=== PATIENT | male | born 1960 | race Caucasian/White ===

== ENCOUNTER 2017-10-15 07:45 | Inpatient (IN) | payer MEDICARE, MEDICAID ==
[2017-10-15 07:56] VITALS: BMI 30.2
[2017-10-15 08:32] LABS: BASO # 0.1 K/uL (0.0-0.2); BASO % 0.7 % (0.0-2.0); EOS # 0.1 K/uL (0.0-0.7); EOS % 0.5 % (0.0-4.0); HEMOGLOBIN 14.4 g/dL (12.0-18.0); LYMPH # 1.4 K/uL (1.0-4.3); LYMPH % 11.8 % (20.0-40.0); MEAN CELL VOLUME 95.8 fL (80.0-94.0); MEAN CORPUSCULAR HEMOGLOBIN 32.3 pg (27.0-31.0); MEAN CORPUSCULAR HGB CONC 33.7 g/dL (33.0-37.0); MEAN PLATELET VOLUME 9.8 fL (7.2-11.7); MONO # 1.4 K/uL (0.0-0.8); MONO % 11.7 % (0.0-10.0); NEUT % 75.3 % (50.0-75.0); RBC 4.44 Mil/uL (4.40-5.90); RED CELL DISTRIBUTION WIDTH 13.9 % (11.5-14.5); WHITE BLOOD COUNT 11.9 K/uL (4.8-10.8)
[2017-10-15 08:44] LABS: ALB/GLOB RATIO 1.4 (1.0-2.1); CALCIUM 9.3 mg/dl (8.6-10.4); GFR NON-AFRICAN AMERICAN > 60
[2017-10-15 08:45] LABS: ACETAMINOPHEN < 10.0 ug/mL (10.0-30.0); ALT/SGPT 19 U/L (21-72); AST/SGOT 27 U/L (17-59); BLOOD UREA NITROGEN 19 mg/dL (9-20); SALICYLATE < 1.0 mg/dL 1
--- NOTE | 2017-10-15 09:10 | C.PDOC ---
History Of Present Illness <Romana Post - Last Filed: 10/15/17 18:25> <Zoey Yee N - Last Filed: 10/15/17 21:52> 56 y/o male with PMH HTN and CVA presents to ED for complaints of trouble sleeping that began 2 weeks ago. 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 HPI and ROS limited secondary to condition of sleepiness. ( Romana Post) History Per: Patient History/Exam Limitations: no limitations Onset/Duration Of Symptoms: Hrs Current Symptoms Are (Timing): Still Present Suicide/Self Injury Attempted (Context): None Associated Symptoms: denies: Suicidal Thoughts, Suicidal Plan Involuntary Hold By: None Recent travel outside of the [place]: No <Romana Post - Last Filed: 10/15/17 18:25> <Zoey Yee N - Last Filed: 10/15/17 21:52> Time Seen by Provider: 10/15/17 07:52 Chief Complaint (Nursing): Psychiatric Evaluation Past Medical History Reviewed: Historical Data, Nursing Documentation, Vital Signs - Medical History PMH: Anxiety, Bipolar Disorder, Diabetes, HTN, Chronic Kidney Disease, TIA (CVA) Family History: States: Unknown Family Hx - Social History Hx Tobacco Use: Yes Hx Alcohol Use: No (Patient denies) Hx Substance Use: Yes (Patient reported he quit > 30 years ago) - Immunization History Hx Tetanus Toxoid Vaccination: No Hx Influenza Vaccination: No Hx Pneumococcal Vaccination: No <Romana Post - Last Filed: 10/15/17 18:25> Vital Signs: Last Vital Signs Temp 99 F 10/15/17 17:23 Pulse 88 10/15/17 20:52 Resp 16 10/15/17 20:52 BP 147/75 10/15/17 20:52 Pulse Ox 100 10/15/17 20:52 - [facility] Procedures EXERCISE TREATMENT OF MUSCULOSK WHOLE USING ASSIST EQUIPMENT (07/02/15) GAIT TRAINING/FUNCTIONAL AMBULATION TREATMENT (07/02/15) HOME MANAGEMENT TREATMENT USING ASSIST EQUIPMENT (07/02/15) INTRODUCTION OF SERUM/TOX/VACCINE INTO MUSCLE, PERC APPROACH (08/08/15) ULTRASONOGRAPHY OF RIGHT AND LEFT HEART, TRANSESOPHAGEAL (08/08/15) Review Of Systems Review Of Systems: ROS cannot be obtained secondary to pt's inabilty to answer questions. (Limited secondary to condition of sleepiness) Constitutional: Positive for: Other (Trouble sleeping) <Romana Post - Last Filed: 10/15/17 18:25> Physical Exam - Physical Exam Appears: Non-toxic, No Acute Distress, Other (Sleepy but arousable ) Skin: Normal Color, Warm, Dry, No Rash Head: Atraumatic, Normacephalic Eye(s): bilateral: Normal Inspection, PERRL, EOMI Nose: Normal Oral Mucosa: Moist Neck: Normal ROM, Supple Chest: Symmetrical, No Tenderness Cardiovascular: Rhythm Regular Respiratory: Normal Breath Sounds, No Decreased Breath Sounds, No Rales, No Rhonchi, No Wheezing Gastrointestinal/Abdominal: Normal Exam, Soft, No Tenderness Extremity: Normal ROM, No Deformity Extremity: Bilateral: Atraumatic, Normal Color And Temperature, Normal ROM Neurological/Psych: Oriented x3, Normal Speech, Other (No focal deficits ) <Romana Post - Last Filed: 10/15/17 18:25> ED Course And Treatment - Laboratory Results Result Diagrams: 10/15/17 08:29 10/15/17 08:29 ECG: Interpreted By Me, Viewed By Me ECG Rhythm: Sinus Rhythm (Normal at 73 bpm ), Nonspecific Changes O2 Sat by Pulse Oximetry: 96 (RA) Pulse Ox Interpretation: Normal Progress Note: Ordered blood work, EKG, and Urinalysis. Crisis Notified. Pt was re-evaluated multiple times. Pt later states he took the "pills" for a "quick ". Vitals WNL. PT requesting to be discharged. More alert but occassionally drowsy. Pt was seen and evaluted by crisis, who instruct[place] [facility] [place]. PT ate meal, had family at bedside, no acute distress. Case endorsed to Dr Yee, pending re-evaluation and disposition. <Romana Post - Last Filed: 10/15/17 18:25> - Laboratory Results Result Diagrams: 10/15/17 08:29 10/15/17 08:29 - Other Rad Chest X-Ray: Viewed By Me, Read By Radiologist Interpretation: Findings: Mild diffuse increased interstitial lung markings. Mild right hilar prominence. Question mild patchy increased markings at the left lung base. Clinical correlation. Heart size within normal limits. Degenerative changes in the spine. Impression: Mild diffuse increased interstitial lung markings. Mild right hilar prominence. Question mild patchy increased markings at the left lung base. Clinical correlation. <Zoey Yee - Last Filed: 10/15/17 21:52> Medical Decision Making <Romana Post - Last Filed: 10/15/17 18:25> <Zoey Yee - Last Filed: 10/15/17 21:52> Medical Decision Making: Impression: 56 y/o male with SI Plan: --EKG --Acetaminophen --Alcohol serum --CMP --Drug screen --Salicylate --CBC --Chest X-Ray --Catapres 0.3 mg PO --Apresoline 100 mg PO --Nicoderm CQ 1 patch 1952-- admitted for SI/ depression (Zoey Yee) Disposition - Disposition Disposition Time: 18:37 <Romana Post - Last Filed: 10/15/17 18:25> <Zoey Yee - Last Filed: 10/15/17 21:52> - Disposition Disposition: HOSPITALIZED Condition: STABLE - Clinical Impression Clinical Impression: Suicide attempt, Drug overdose - PA / CERTIFIED FINANCIAL PLANNER / Resident Statement MD/DO has reviewed & agrees with the documentation as recorded. - Scribe Statement The provider has reviewed the documentation as recorded by the Scribe <Romana Post - Last Filed: 10/15/17 18:25> <Zoey Yee - Last Filed: 10/15/17 21:52> - Scribe Statement Piedad Billingsley All medical record entries made by the Scribe were at my direction and personally dictated by me. I have reviewed the chart and agree that the record accurately reflects my personal performance of the history, physical exam, medical decision making, and the department course for this patient. I have also personally directed, reviewed, and agree with the discharge instructions and disposition. (Romana Post)
[2017-10-15 09:58] LABS: SQUAMOUS EPITHIAL < 1 /hpf (0-5); URINE BILIRUBIN NEGATIVE (NEGATIVE); URINE BLOOD NEGATIVE (NEGATIVE); URINE CLARITY Clear (Clear); URINE COLOR Yellow (YELLOW); URINE GLUCOSE (UA) NORMAL (Normal); URINE LEUKOCYTE ESTERASE NEG Leu/uL (Negative); URINE PROTEIN NEGATIVE (NEGATIVE); URINE UROBILINOGEN NORMAL mg/dL (0.2-1.0)
[2017-10-15 10:16] LABS: BARBITURATES, UR NEGATIVE (NEGATIVE); BENZODIAZEPINES, UR NEGATIVE (NEGATIVE); OPIATES, UR NEGATIVE (NEGATIVE); PHENCYCLIDINE, UR NEGATIVE (NEGATIVE)
--- NOTE | 2017-10-15 17:26 | RAD ---
Chest x-ray two views History: Screening exam. Comparison: 06/26/2015 Findings: Mild diffuse increased interstitial lung markings. Mild right hilar prominence. Question mild patchy increased markings at the left lung base. Clinical correlation. Heart size within normal limits. Degenerative changes in the spine. Impression: Mild diffuse increased interstitial lung markings. Mild right hilar prominence. Question mild patchy increased markings at the left lung base. Clinical correlation.
--- NOTE | 2017-10-15 22:30 | PCM.BM ---
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) - Milieu Protocol Maintain good personal hygiene: daily Encourage regular showers, daily Remind patient to perform daily oral care, every shift Assist patient to perform ADL's Conduct patient checks and document Observation sheet: Q15 minutes (For safety) Maintain personal safety: every shift Educate patient to report safety concerns to staff, every shift Monitor environment for contraband/sharps Medication safety: Monitor for expected outcome, potential side effects: every shift, Assess barriers to learning: every shift, Assess readiness for medication education: every shift <Giuliana Webb - Last Filed: 10/18/17 12:16> Family Contact Family involvement: Family/SO is involved Family contact: Patient declines to allow family contact at present - Goals for Treatment Patient goals for treatment: "I need a therapist." Discharge/Continuing Care - Education Needs Education Needs: Patient Medication, Patient Coping Skills - Discharge Discharge Criteria: Tolerates medication w/o severe side effects, Reduction of target symptoms Discharge to:: Home - Treatment Team Participation Discussed with Family/SO: No Was Patient/Family/SO present at Treatment Team Meeting: Yes <Fly Taylor - Last Filed: 10/20/17 13:19> - Diagnosis (1) Bipolar 1 disorder Status: Chronic Interventions: 10/20/17 13:19 * Assess/adjust medications daily and /or as needed * See patient on an individual basis 7x/week to assess level of manic behaviors and stability * Discuss risks, benefits, side effects and alternatives of medications *
--- NOTE | 2017-10-16 10:04 | PCM.PSYCH ---
Initial Psychiatric Evaluation - Initial Psychiatric Evaluation Type of Admission: Voluntary Legal Status: Capacity Chief Complaint (in patient's own words): I was feeling down and depressed.' History of Present Illness and Precipitating Events: Pt is a 56 year old single male referred by EMS after intentional overdose on 6 ambien pills 10 mg and 1 percocet pill 325mg/10mg. Pt reports history of being diagnosed with bipolar disorder and ADHD, when he was a child. He also reports history of few inpatient psychiatric hospitalizations in [place]. Pt reports he had seen a therapist years ago and would like to be linked with one near his home. Pt reports his brother lives in the home with him and was the one who called 911. Pt reports he was watching a show where it described a person who killed himself after taking 10 pills of ambien and 1 pill of percocet. Pt states he was stressed, anxiety and tired. Patient reports depressed mood, at times feelings of hopelessness and helplessness, poor sleep and poor appetite. Pt states he had not been sleeping for 4 days. As per the collateral, his son reported that the trigger for the suicide attempt was his weakness to his right side (arm and leg) and a recent break up with his girlfriend. Pt's son reports pt was able to "build a home" but now with the weakness to right side pt is not able to do all the things he use to. Son reports the pt's girlfriend had a lot of problems which included cancer but that pt would burden himself with other's problems. He reports at times irritability, and agitation. Patient currently denies any auditory/visual hallucinations and any paranoia. He denies any homicidal ideation. He reports drinking few beers over the weekend but denies any other substance abuse. PMH: CVA R side, HTN Current Medications: Active Medications Generic Name Dose Route Start Last Admin Trade Name Freq PRN Reason Stop Dose Admin Hydroxyzine HCl 25 mg 10/16/17 00:06 10/16/17 00:27 Atarax PO 25 mg Q8H PRN Administration Anxiety Mirtazapine 15 mg 10/15/17 23:30 10/15/17 23:57 Remeron PO 15 mg HS JESENIA Administration Nicotine 1 patch 10/15/17 16:45 10/15/17 17:20 Nicoderm Cq TD 1 patch DAILY JESENIA Administration Trazodone HCl 100 mg 10/15/17 23:30 10/15/17 23:56 Desyrel PO 100 mg HS JESENIA Administration Past Psychiatric History - Past Psychiatric History Previous Treatment History: Inpatient Pertinent Medical Hx (Current Medical&Sleep Prob, Allergies): Allergies Allergy/AdvReac Type Severity Reaction Status Date / Time chlorpromazine HCl Allergy Severe RASH Verified 08/14/15 20:02 [From Thorazine] Atorvastatin [Lipitor] 10 mg PO DAILY 10/15/17 Clonidine HCl [Catapres] 0.3 mg PO BID 10/15/17 Divalproex Sodium [Divalproex Sodium ER] 500 mg PO DAILY 10/15/17 Hydralazine HCl 100 mg PO TID 10/15/17 Hydralazine HCl 100 mg PO TID 10/15/17 Isosorbide Mononitrate ER [Imdur ER] 30 mg PO DAILY 10/15/17 Losartan/Hydrochlorothiazide [Hyzaar 25 mg-100 mg] 1 tab PO DAILY 10/15/17 Metoprolol Succinate 50 mg PO DAILY 10/15/17 Oxycodone HCl/Acetaminophen [Endocet 325 mg-10 mg] 1 tab PO TID 10/15/17 Sulindac 200 mg PO BID 10/15/17 Zolpidem [Ambien] 10 mg PO HS 10/15/17 Review of Systems - Review of Systems All systems: reviewed and no additional remarkable complaints except - Psychiatric Psychiatric: Anxiety, Irritability, Suicidal Ideation Mental Status Examination - Personal Presentation Personal Presentation: Looks stated age - Affect Affect: Constricted, Depressed - Motor Activity Motor Activity: Psychomotor Retardation - Reliability in Providing Information Reliability in Providing Information: Poor, due to altered mood - Speech Speech: Organized - Mood Mood: Depressed, Anxious - Formal Thought Process Formal Thought Process: No Impairment - Obsessions/Compulsions Obsessions: No Compulsions: No - Cognitive Functions Orientation: Person, Place, Situation, Time Sensorium: Alert Attention/Concentration: Attentive Abstract Thinking: [place] Estimate of Intelligence: Below average Judgement: Imparied, as evidence by: Poor judgement, Imparied, as evidence by: Lack of insight into illness - Risk Risk: Suicidal, Diminished functioning - Strength & Assets Inventory Strength & Assets Inventory: Family support DSM 5 DX - DSM 5 DSM 5 Diagnosis: Bipolar disorder depressed severe without psychotic features Sedative/hypnotic use disorder moderate - Recommended/Plan of Treatment Treatment Recommendations and Plan of Treatment: Bipolar disorder depressed severe without psychotic features CBT Psychoeducation Supportive therapy, group therapy, individual therapy Remeron 15 mg PO QHS Neurontin 100 mg by mouth 3 times a day Trazodone 100 mg by mouth daily at bedtime Sedative/hypnotic use disorder moderate Monitor signs and symptoms Use WA for abstinence Ativan 1 mg by mouth every 6 hours when necessary HTN, S/P CVA Continue prescribed medications Metoprolol, clonidine, HCTZ
--- NOTE | 2017-10-16 23:47 | CARD ---
APPROVED REPORT Date of service: 10/15/2017 EKG Measurement Heart [id number] <Conclusion> Normal sinus rhythm Voltage criteria for left ventricular hypertrophy Nonspecific T wave abnormality Abnormal ECG
--- NOTE | 2017-10-17 01:19 | CP.PCM.CON ---
<Evelyn Resendiz - Last Filed: 10/17/17 01:19> History of Present Illness - History of Present Illness History of Present Illness: Consult note for Hypertension Patient is a 56 year old male with PMHx of CVAs, HTN, HLD, IGT, bipolar disorder , and depression who came to [facility] [place] ED by EMS after taking 6 ambien pills and 1 percocet pill in a suicide attempt. Medicine consulted to help manage patient's hypertension. Patient is a poor historian and is not sure of what medications he was taking for his hypertension at home. Patient thinks he was taking 3 medications, but admits that he was not compliant and often forgot to take his medications. Patient has had strokes in the past and has residual right sided weakness. Patient uses a cane to walk. Currently patient is very tired during the exam as he had been sleeping. Patient denies any headache, blurry vision, chest pain, shortness of breath, abdominal pain, nausea, vomiting, constipation , or diarrhea. PMD: Zina Moss All: Chlorpromazine PMHx: CVAs, HTN, HLD, IGT, bipolar disorder, and depression Psurg: R shoulder surgery in 2013 Famhx: Mom: asthma, Dad: HTN, of [place] at 56 Social: 15 cigs/ day for 40+ years, denies alcohol, uses percocet 2 times per day, smokes marijuana once per week, used to do cocaine years ago. no history of iv drugs. lives with brother. Review of Systems - Constitutional Constitutional: absent: Fever - EENT Eyes: absent: Blurred Vision - Cardiovascular Cardiovascular: absent: Chest Pain, Chest Pain with Activity, Dyspnea, Palpitations - Respiratory Respiratory: absent: Dyspnea on Exertion - Gastrointestinal Gastrointestinal: absent: Abdominal Pain, Constipation, Diarrhea, Nausea, Vomiting - Genitourinary Genitourinary: absent: Dysuria - Musculoskeletal Musculoskeletal: absent: Numbness, Tingling Additional comments: chronic weakness on right side from prior stroke - Integumentary Integumentary: absent: Rash Past Patient History - Infectious Disease Hx of Infectious Diseases: None - Tetanus Immunizations Tetanus Immunization: Unknown - Past Medical History & Family History Past Medical History?: Yes - Past Social History Smoking Status: Former Smoker - CARDIAC Hx Hypertension: Yes - PULMONARY Hx Respiratory Disorders: Yes (Patient reported shortness of breath on exertion) - NEUROLOGICAL Hx Transient Ischemic Attacks (TIA): Yes (CVA) - HEENT Hx HEENT Problems: No - RENAL Hx Chronic Kidney Disease: Yes - ENDOCRINE/METABOLIC Hx Endocrine Disorders: No - HEMATOLOGICAL/ONCOLOGICAL Hx Human Immunodeficiency Virus (HIV): No - INTEGUMENTARY Hx Dermatological Problems: No - MUSCULOSKELETAL/RHEUMATOLOGICAL Hx Falls: Yes (Reported history of fall from the first stroke) - GASTROINTESTINAL Hx Gastrointestinal Disorders: No - GENITOURINARY/GYNECOLOGICAL Hx Genitourinary Disorders: No - PSYCHIATRIC Hx Bipolar Disorder: Yes Hx Substance Use: No - SURGICAL HISTORY Hx Surgeries: Yes Hx Orthopedic Surgery: Yes (Right shoulder surgery 2x) - ANESTHESIA Hx Anesthesia: Yes Hx Anesthesia Reactions: No Hx Malignant Hyperthermia: No Meds Allergies/Adverse Reactions: Allergies Allergy/AdvReac Type Severity Reaction Status Date / Time chlorpromazine HCl Allergy Severe RASH Verified 08/14/15 20:02 [From Thorazine] - Medications Medications: Current Medications Hydrochlorothiazide (Microzide) 100 mg PO DAILY [facility] Hydroxyzine HCl (Atarax) 25 mg PO Q8H PRN PRN Reason: Anxiety Last Admin: 10/16/17 00:27 Dose: 25 mg Losartan Potassium (Cozaar) 25 mg PO DAILY [facility] Metoprolol Tartrate (Lopressor) 50 mg PO BID [facility] Mirtazapine (Remeron) 15 mg PO HS [facility] Last Admin: 10/16/17 21:38 Dose: 15 mg Nicotine (Nicoderm Cq) 1 patch TD DAILY [facility] Last Admin: 10/16/17 11:24 Dose: Not Given Trazodone HCl (Desyrel) 100 mg PO HS [facility] Last Admin: 10/16/17 21:38 Dose: 100 mg Physical Exam - Constitutional Appears: Non-toxic, No Acute Distress - Head Exam Head Exam: ATRAUMATIC, NORMAL INSPECTION, NORMOCEPHALIC - Eye Exam Eye Exam: EOMI, Normal appearance - ENT Exam ENT Exam: Mucous Membranes Dry - Respiratory Exam Respiratory Exam: Clear to Auscultation Bilateral, NORMAL BREATHING PATTERN - Cardiovascular Exam Cardiovascular Exam: Tachycardia, +S1, +S2 - GI/Abdominal Exam GI & Abdominal Exam: Normal Bowel Sounds, Soft. absent: Tenderness - Extremities Exam Extremities exam: Positive for: normal inspection. Negative for: pedal edema Additional comments: decreased strength in right arm and right leg - Neurological Exam Neurological exam: Alert, Oriented x3 - Psychiatric Exam Psychiatric exam: Normal Affect, Normal Mood - Skin Skin Exam: Intact, Normal Color, Warm Results - Vital Signs Recent Vital Signs: Last Vital Signs Temp 97.7 F 10/16/17 21:49 Pulse 75 10/16/17 21:49 Resp 20 10/16/17 06:00 BP 166/92 H 10/16/17 21:49 Pulse Ox 95 10/16/17 21:49 - Labs Result Diagrams: 10/15/17 08:29 10/15/17 08:29 Assessment & Plan - Assessment and Plan (Free Text) Assessment: HTN stopped Clonidine and Hydralazine Started Metoprolol 50mg po BID Losartan 25mg po daily HCTZ 100mg po daily f/u TSH, free T4 continue to monitor HLD home med Lipitor NF start Crestor 5mg po HS f/u lipid panel IGT f/u HgA1C Depression and Bipolar Disorder management as per psych Discussed with Dr. Swain <Bartolo Swain P - Last Filed: 10/17/17 07:28> Meds - Medications Medications: Current Medications Hydrochlorothiazide (Microzide) 100 mg PO DAILY [facility] Hydroxyzine HCl (Atarax) 25 mg PO Q8H PRN PRN Reason: Anxiety Last Admin: 10/16/17 00:27 Dose: 25 mg Losartan Potassium (Cozaar) 25 mg PO DAILY [facility] Metoprolol Tartrate (Lopressor) 50 mg PO BID [facility] Last Admin: 10/17/17 02:04 Dose: 50 mg Mirtazapine (Remeron) 15 mg PO HS [facility] Last Admin: 10/16/17 21:38 Dose: 15 mg Nicotine (Nicoderm Cq) 1 patch TD DAILY [facility] Last Admin: 10/16/17 11:24 Dose: Not Given Rosuvastatin Calcium (Crestor) 5 mg PO HS [facility] Trazodone HCl (Desyrel) 100 mg PO HS [facility] Last Admin: 10/16/17 21:38 Dose: 100 mg Results - Vital Signs Recent Vital Signs: Last Vital Signs Temp 97.7 F 10/16/17 21:49 Pulse 75 10/16/17 21:49 Resp 20 10/16/17 06:00 BP 166/92 H 10/16/17 21:49 Pulse Ox 95 10/16/17 21:49 - Labs Result Diagrams: 10/15/17 08:29 10/15/17 08:29 Attending/Attestation - Attestation I have personally seen and examined this patient.: Yes I have fully participated in the care of the patient.: Yes I have reviewed all pertinent clinical information: Yes Notes (Text): Consulted for uncontrolled htn, patient mentions takes 3 medicine for HTN although 6 listed in the home meds, doesn't remember the name or the dosage, also mentions takes most of the time twice a day, but not compliant all the time. Admitted in the psych with suicidal attempt taking ambien and percocet, started clonidine prn, scheduled hydralazine, prior h/o multiple lacunar strokes from prior head imaging, patient know right sided weakness and using cane, pmh of tobacco abuse, and intermittent cocaine abuse. LVH on the EKG. Plan Counselled about compliance, and knowledge of the meds he is using. Counselled about substance abuse Will start cardioprotective meds ie betablocker, arb and hctz combo, will avoid clonidine as patient takes intermittent meds will precipitate rebound htn, bp should be observed and treated only if the numbers very elevated or low other holm the full effect of these meds may need 4-8 wks. Low dose ASA especially with h/o prior strokes.
--- NOTE | 2017-10-17 10:23 | CP.PCM.PN ---
<Jennifer Marrero - Last Filed: 10/17/17 17:05> Subjective - Date & Time of Evaluation Date of Evaluation: 10/17/17 Time of Evaluation: 12:05 - Subjective Subjective: Patient examined at bedside, resting comfortably. Patient reports no complaints. Denies headache, chest pain, SOB, abd pain, nausea, diarrhea Objective - Vital Signs/Intake and Output Vital Signs (last 24 hours): Temp Pulse Resp BP Pulse Ox 97.7 F 85 20 141/76 95 10/16/17 21:49 10/17/17 09:39 10/16/17 06:00 10/17/17 09:39 10/16/17 21:49 - Medications Medications: Current Medications Hydrochlorothiazide (Microzide) 100 mg PO DAILY [facility] Hydroxyzine HCl (Atarax) 25 mg PO Q8H PRN PRN Reason: Anxiety Last Admin: 10/16/17 00:27 Dose: 25 mg Losartan Potassium (Cozaar) 25 mg PO DAILY [facility] Metoprolol Tartrate (Lopressor) 50 mg PO BID [facility] Last Admin: 10/17/17 02:04 Dose: 50 mg Mirtazapine (Remeron) 15 mg PO HS [facility] Last Admin: 10/16/17 21:38 Dose: 15 mg Nicotine (Nicoderm Cq) 1 patch TD DAILY [facility] Last Admin: 10/16/17 11:24 Dose: Not Given Rosuvastatin Calcium (Crestor) 5 mg PO HS [facility] Trazodone HCl (Desyrel) 100 mg PO HS [facility] Last Admin: 10/16/17 21:38 Dose: 100 mg - Labs Labs: 10/15/17 08:29 10/15/17 08:29 - Constitutional Appears: Non-toxic, No Acute Distress - Head Exam Head Exam: ATRAUMATIC, NORMAL INSPECTION, NORMOCEPHALIC - Eye Exam Eye Exam: EOMI - ENT Exam ENT Exam: Mucous Membranes Moist - Neck Exam Neck Exam: Normal Inspection. absent: Lymphadenopathy - Respiratory Exam Respiratory Exam: Clear to Ausculation Bilateral, NORMAL BREATHING PATTERN. absent: Rales, Wheezes - Cardiovascular Exam Cardiovascular Exam: REGULAR RHYTHM, +S1, +S2. absent: Tachycardia - GI/Abdominal Exam GI & Abdominal Exam: Soft, Normal Bowel Sounds. absent: Distended, Tenderness - Extremities Exam Extremities Exam: Normal Capillary Refill, Normal Inspection. absent: Calf Tenderness, Pedal Edema - Neurological Exam Neurological Exam: Alert, Awake, Oriented x3 - Psychiatric Exam Psychiatric exam: Normal Affect, Normal Mood - Skin Skin Exam: Dry, Intact, Normal Color, Warm Assessment and Plan - Assessment and Plan (Free Text) Assessment: 56 year old male CVAs, HTN, HLD, IGT, bipolar disorder, and depression admitted s/p pill suicide attempts via pill ingestion. Medicine consulted to manage HTN HTN -cozaar 25mg PO qd -lopressor 50mg PO BID -HCTZ 25mg q8 PRN -vitals q8 CAD -crestor 5mg hs -ASA 81mg held Psych -meds handled by psych <Priyank Stevens H - Last Filed: 10/17/17 17:37> Objective - Vital Signs/Intake and Output Vital Signs (last 24 hours): Temp Pulse Resp BP Pulse Ox 97.8 F 83 20 202/101 H 98 10/17/17 13:23 10/17/17 16:16 10/17/17 13:23 10/17/17 16:16 10/17/17 16:16 - Medications Medications: Current Medications Gabapentin (Neurontin) 100 mg PO TID [facility] Last Admin: 10/17/17 17:23 Dose: 100 mg Hydrochlorothiazide (Microzide) 100 mg PO DAILY [facility] Last Admin: 10/17/17 10:37 Dose: Not Given Hydroxyzine HCl (Atarax) 25 mg PO Q8H PRN PRN Reason: Anxiety Last Admin: 10/16/17 00:27 Dose: 25 mg Lorazepam (Ativan) 1 mg PO Q6 PRN PRN Reason: Anxiety Losartan Potassium (Cozaar) 25 mg PO DAILY [facility] Last Admin: 10/17/17 10:36 Dose: Not Given Metoprolol Tartrate (Lopressor) 50 mg PO BID [facility] Last Admin: 10/17/17 17:23 Dose: 50 mg Mirtazapine (Remeron) 30 mg PO HS [facility] Nicotine (Nicoderm Cq) 1 patch TD DAILY [facility] Last Admin: 10/17/17 10:51 Dose: 1 patch Rosuvastatin Calcium (Crestor) 5 mg PO HS [facility] Trazodone HCl (Desyrel) 100 mg PO HS [facility] Last Admin: 10/16/17 21:38 Dose: 100 mg - Labs Labs: 10/15/17 08:29 10/15/17 08:29 Attending/Attestation - Attestation I have personally seen and examined this patient.: Yes I have fully participated in the care of the patient.: Yes I have reviewed all pertinent clinical information, including history, physical exam and plan: Yes Notes (Text): Medical consult: Patient was seen and examined by me and with the anesthesiology medical doctor Psychiatry held his regular BP medications since they observed that the blood pressure was now 140 systolic. I made the staff aware that if the blood pressure rise again that they needed to administer the medication for blood pressure Priyank Stevens
--- NOTE | 2017-10-17 14:31 | PCM.PYCHPN ---
Psychiatric Progress Note - Psychiatric Progress Note Patient seen today, length of contact: 15 min Patient Chief Complaint: I m feeling depressed.' Problems Identified/Issues Discussed: Patient seen and evaluated, chart reviewed and discussed with the nurse. Patient reports depressed mood, and feelings of helplessness. he remained isolative, depressed and withdrawn. He denies any withdrawal symptoms. He denies any auditory or visual hallucinations. He is Taking medications and denies any side effects. Supportive therapy and psychoeducation were given. Medication Change: Yes Medical Record Reviewed: Yes Mental Status Examination - Cognitive Function Orientation: Person, Place, Situation, Time Memory: Intact Attention: WNL Concentration: Poor Association: WNL Fund of Knowledge: Poor - Mood Mood: Depressed, Anxious - Affect Affect: Constricted, Depressed - Formal Thought Process Formal Thought Process: No Impairment - Suicidal Ideation Suicidal Ideation: No - Homicidal Ideation Homicidal Ideation: No Goal/Treatment Plan - Goal/Treatment Plan Need for Continued Stay: Severe depression anxiety, Severe functional impairment Progress Toward Problem(s) and Goals/Treatment Plan: Bipolar disorder depressed severe without psychotic features CBT Psychoeducation Supportive therapy, group therapy, individual therapy Remeron 30 mg PO QHS Neurontin 100 mg by mouth 3 times a day Trazodone 100 mg by mouth daily at bedtime Sedative/hypnotic use disorder moderate Monitor signs and symptoms Use NC for abstinence Ativan 1 mg by mouth every 6 hours when necessary HTN, S/P CVA Continue prescribed medications Metoprolol, clonidine, HCTZ IM on board
--- NOTE | 2017-10-18 10:02 | CP.PCM.PN ---
<Jennifer Marrero - Last Filed: 10/18/17 16:45> Subjective - Date & Time of Evaluation Date of Evaluation: 10/18/17 Time of Evaluation: 07:40 - Subjective Subjective: Pt examined at bedside. Nursing reports BP elevated throughout the night. Pt appears confused and has a difficult time communicating. Denies headache, dizziness, chest pain, SOB, abd pain, nausea, vomiting, diarrhea. Objective - Vital Signs/Intake and Output Vital Signs (last 24 hours): Temp Pulse Resp BP Pulse Ox 98.1 F 74 20 162/96 H 98 10/18/17 06:24 10/18/17 06:33 10/18/17 06:24 10/18/17 06:33 10/17/17 16:16 - Medications Medications: Current Medications Gabapentin (Neurontin) 100 mg PO TID [facility] Last Admin: 10/18/17 09:25 Dose: 100 mg Hydrochlorothiazide (Microzide) 100 mg PO DAILY [facility] Last Admin: 10/18/17 09:26 Dose: 100 mg Hydroxyzine HCl (Atarax) 25 mg PO Q8H PRN PRN Reason: Anxiety Last Admin: 10/16/17 00:27 Dose: 25 mg Lorazepam (Ativan) 1 mg PO Q6 PRN PRN Reason: Anxiety Last Admin: 10/18/17 08:03 Dose: 1 mg Losartan Potassium (Cozaar) 25 mg PO DAILY [facility] Last Admin: 10/18/17 09:24 Dose: 25 mg Metoprolol Tartrate (Lopressor) 50 mg PO BID [facility] Last Admin: 10/18/17 09:25 Dose: 50 mg Mirtazapine (Remeron) 30 mg PO HS [facility] Last Admin: 10/17/17 22:00 Dose: 30 mg Nicotine (Nicoderm Cq) 1 patch TD DAILY [facility] Last Admin: 10/18/17 09:25 Dose: 1 patch Rosuvastatin Calcium (Crestor) 5 mg PO HS [facility] Last Admin: 10/17/17 22:00 Dose: 5 mg Trazodone HCl (Desyrel) 100 mg PO HS [facility] Last Admin: 10/17/17 22:00 Dose: 100 mg - Labs Labs: 10/15/17 08:29 10/15/17 08:29 - Constitutional Appears: Non-toxic, No Acute Distress - Head Exam Head Exam: ATRAUMATIC, NORMAL INSPECTION, NORMOCEPHALIC - Eye Exam Eye Exam: EOMI, Normal appearance Pupil Exam: PERRL Assessment and Plan - Assessment and Plan (Free Text) Assessment: 56 year old male CVAs, HTN, HLD, IGT, bipolar disorder, and depression admitted s/p pill suicide attempts via pill ingestion. Medicine consulted to manage HTN HTN -cozaar 25mg PO qd -lopressor 50mg PO BID -HCTZ 25mg q8 PRN -hydralazine 50mg PO TID -vitals q8 CAD -crestor 5mg hs -ASA 81mg held Psych -meds handled by psych <Priyank Stevens H - Last Filed: 10/18/17 18:01> Objective - Vital Signs/Intake and Output Vital Signs (last 24 hours): Temp Pulse Resp BP Pulse Ox 98.1 F 77 20 157/95 H 99 10/18/17 06:24 10/18/17 16:42 10/18/17 06:24 10/18/17 16:42 10/18/17 16:42 - Medications Medications: Current Medications Gabapentin (Neurontin) 100 mg PO TID [facility] Last Admin: 10/18/17 13:13 Dose: 100 mg Hydralazine HCl (Apresoline) 50 mg PO TID [facility] Last Admin: 10/18/17 15:00 Dose: 50 mg Hydrochlorothiazide (Microzide) 100 mg PO DAILY [facility] Last Admin: 10/18/17 09:26 Dose: 100 mg Hydroxyzine HCl (Atarax) 25 mg PO Q8H PRN PRN Reason: Anxiety Last Admin: 10/18/17 13:13 Dose: 25 mg Lorazepam (Ativan) 1 mg PO Q6 PRN PRN Reason: Anxiety Last Admin: 10/18/17 08:03 Dose: 1 mg Losartan Potassium (Cozaar) 25 mg PO DAILY [facility] Last Admin: 10/18/17 09:24 Dose: 25 mg Metoprolol Tartrate (Lopressor) 50 mg PO BID [facility] Last Admin: 10/18/17 09:25 Dose: 50 mg Mirtazapine (Remeron) 30 mg PO HS [facility] Last Admin: 10/17/17 22:00 Dose: 30 mg Nicotine (Nicoderm Cq) 1 patch TD DAILY [facility] Last Admin: 10/18/17 09:25 Dose: 1 patch Rosuvastatin Calcium (Crestor) 5 mg PO HS [facility] Last Admin: 10/17/17 22:00 Dose: 5 mg Trazodone HCl (Desyrel) 100 mg PO [facility] Last Admin: 10/17/17 22:00 Dose: 100 mg - Labs Labs: 10/15/17 08:29 10/15/17 08:29 Attending/Attestation - Attestation I have personally seen and examined this patient.: Yes I have fully participated in the care of the patient.: Yes I have reviewed all pertinent clinical information, including history, physical exam and plan: Yes Notes (Text): 10/18/17 18:01 Medical attending: Patient was seen and examined by me, reviewed the above note by the medical unit secretary, and agree with the above note. The patient's blood pressure was still relatively elevated. This may be due to the patient having a clonidine rebound effect. Regarding continue the other previous blood pressure medications, work and also add on oral hydralazine 50 mg 3 times a day. Thank you very much, Priyank Stevens
[2017-10-18] MEDS ORDERED: POLYETHYLENE GLYCOL 3350 17 GM/Dose PACKET PO ONE (10:03)
--- NOTE | 2017-10-18 12:45 | PCM.PYCHPN ---
Psychiatric Progress Note - Psychiatric Progress Note Patient seen today, length of contact: 15 min Patient Chief Complaint: "Not good" Problems Identified/Issues Discussed: The pt is seen, chart reviewed, case discussed with staff. The pt is compliant with medications and reports no side-effects. Symptoms are improving but needs more time to stabilize. Pt attends groups and activities. Support given, psycho-education provided. After care discussed. Medication Change: Yes Medical Record Reviewed: Yes Mental Status Examination - Cognitive Function Orientation: Person, Place, Situation, Time Memory: Intact Attention: WNL Concentration: Poor Association: WNL Fund of Knowledge: Poor - Mood Mood: Depressed, Anxious - Affect Affect: Constricted, Depressed - Formal Thought Process Formal Thought Process: No Impairment - Suicidal Ideation Suicidal Ideation: No - Homicidal Ideation Homicidal Ideation: No Goal/Treatment Plan - Goal/Treatment Plan Need for Continued Stay: Severe depression anxiety, Discharge may exacerbated symptoms, Severe functional impairment Progress Toward Problem(s) and Goals/Treatment Plan: Continue medications Support and psychoeducation daily Attend groups and activities daily After care planning by RONAN
[2017-10-18 16:42] VITALS: O2SAT 99
--- NOTE | 2017-10-19 10:06 | CP.PCM.PN ---
<Jennifer Marrero - Last Filed: 10/19/17 17:53> Subjective - Date & Time of Evaluation Date of Evaluation: 10/19/17 Time of Evaluation: 09:20 - Subjective Subjective: Patient examined at bedside, no acute events overnight. Patient reports no adverse feelings from medications. Denies headache, dizziness, chest pain, SOB , nausea, diarrhea Objective - Vital Signs/Intake and Output Vital Signs (last 24 hours): Temp Pulse Resp BP Pulse Ox 97.6 F 81 18 157/80 H 99 10/19/17 06:51 10/19/17 06:51 10/19/17 06:51 10/19/17 06:51 10/18/17 16:42 - Medications Medications: Current Medications Gabapentin (Neurontin) 100 mg PO TID [facility] Last Admin: 10/18/17 18:09 Dose: 100 mg Hydralazine HCl (Apresoline) 50 mg PO TID [facility] Last Admin: 10/18/17 18:08 Dose: 50 mg Hydrochlorothiazide (Microzide) 100 mg PO DAILY [facility] Last Admin: 10/18/17 09:26 Dose: 100 mg Hydroxyzine HCl (Atarax) 25 mg PO Q8H PRN PRN Reason: Anxiety Last Admin: 10/18/17 13:13 Dose: 25 mg Lorazepam (Ativan) 1 mg PO Q6 PRN PRN Reason: Anxiety Last Admin: 10/18/17 08:03 Dose: 1 mg Losartan Potassium (Cozaar) 25 mg PO DAILY [facility] Last Admin: 10/18/17 09:24 Dose: 25 mg Metoprolol Tartrate (Lopressor) 50 mg PO BID [facility] Last Admin: 10/18/17 18:09 Dose: 50 mg Mirtazapine (Remeron) 30 mg PO [facility] Last Admin: 10/18/17 22:06 Dose: 30 mg Nicotine (Nicoderm Cq) 1 patch TD DAILY [facility] Last Admin: 10/18/17 09:25 Dose: 1 patch Rosuvastatin Calcium (Crestor) 5 mg PO [facility] Last Admin: 10/18/17 22:06 Dose: 5 mg Trazodone HCl (Desyrel) 100 mg PO [facility] Last Admin: 10/18/17 22:06 Dose: 100 mg - Labs Labs: 10/15/17 08:29 10/15/17 08:29 - Constitutional Appears: Non-toxic, No Acute Distress - Head Exam Head Exam: ATRAUMATIC, NORMAL INSPECTION, NORMOCEPHALIC - Eye Exam Eye Exam: EOMI, Normal appearance - ENT Exam ENT Exam: Mucous Membranes Moist, Normal Exam - Neck Exam Neck Exam: Normal Inspection. absent: Lymphadenopathy - Respiratory Exam Respiratory Exam: Clear to Ausculation Bilateral, NORMAL BREATHING PATTERN. absent: Rales, Wheezes - Cardiovascular Exam Cardiovascular Exam: Tachycardia, REGULAR RHYTHM, +S1, +S2. absent: Murmur - GI/Abdominal Exam GI & Abdominal Exam: Soft, Normal Bowel Sounds. absent: Distended, Tenderness - Extremities Exam Extremities Exam: Normal Capillary Refill, Normal Inspection. absent: Calf Tenderness, Joint Swelling, Pedal Edema - Back Exam Back Exam: NORMAL INSPECTION - Neurological Exam Neurological Exam: Alert, Awake, Normal Gait, Oriented x3 - Psychiatric Exam Psychiatric exam: Normal Affect, Normal Mood. absent: Anxious - Skin Skin Exam: Dry, Intact, Normal Color, Warm Assessment and Plan - Assessment and Plan (Free Text) Assessment: 56 year old male CVAs, HTN, HLD, IGT, bipolar disorder, and depression admitted s/p pill suicide attempts via pill ingestion. Medicine consulted to manage HTN HTN BP still elevated (169-157)/(80-95), although asymptomatic -cozaar 25mg PO qd -lopressor 50mg PO BID -HCTZ 25mg q8 PRN -hydralazine 50mg PO TID -vitals q8 CAD -crestor 5mg hs -ASA 81mg held Psych -meds handled by psych <Priyank Stevens - Last Filed: 10/19/17 18:14> Objective - Vital Signs/Intake and Output Vital Signs (last 24 hours): Temp Pulse Resp BP Pulse Ox 97.6 F 73 18 147/76 99 10/19/17 06:51 10/19/17 16:09 10/19/17 06:51 10/19/17 16:09 10/18/17 16:42 - Medications Medications: Current Medications Gabapentin (Neurontin) 100 mg PO TID [facility] Last Admin: 10/19/17 17:38 Dose: 100 mg Hydralazine HCl (Apresoline) 50 mg PO TID [facility] Last Admin: 10/19/17 17:38 Dose: 50 mg Hydrochlorothiazide (Microzide) 100 mg PO DAILY [facility] Last Admin: 10/19/17 10:40 Dose: 100 mg Hydroxyzine HCl (Atarax) 25 mg PO Q8H PRN PRN Reason: Anxiety Last Admin: 10/18/17 13:13 Dose: 25 mg Lorazepam (Ativan) 1 mg PO Q6 PRN PRN Reason: Anxiety Last Admin: 10/18/17 08:03 Dose: 1 mg Losartan Potassium (Cozaar) 25 mg PO DAILY [facility] Last Admin: 10/19/17 10:39 Dose: 25 mg Metoprolol Tartrate (Lopressor) 50 mg PO BID [facility] Last Admin: 10/19/17 17:38 Dose: 50 mg Mirtazapine (Remeron) 30 mg PO HS [facility] Last Admin: 10/18/17 22:06 Dose: 30 mg Nicotine (Nicoderm Cq) 1 patch TD DAILY [facility] Last Admin: 10/19/17 10:40 Dose: 1 patch Rosuvastatin Calcium (Crestor) 5 mg PO HS [facility] Last Admin: 10/18/17 22:06 Dose: 5 mg Trazodone HCl (Desyrel) 100 mg PO HS [facility] Last Admin: 10/18/17 22:06 Dose: 100 mg - Labs Labs: 10/19/17 14:07 10/19/17 14:07 Attending/Attestation - Attestation I have personally seen and examined this patient.: Yes I have fully participated in the care of the patient.: Yes I have reviewed all pertinent clinical information, including history, physical exam and plan: Yes Notes (Text): 10/19/17 18:14 Medical attending: Patient was seen and examined by me, the patient was seen with the medical residents. I reviewed the above note by certified ophthalmic medical technician and agree with the above. The patient reported that he was walking much better today also he is tolerating his diet as well. His blood pressure still is somewhat elevated with numbers in the 150 systolic range he's currently on 4 medications for blood pressure. For the time being were giving continue to monitor him and if need to we can increase him the medications tomorrow Thank you very much, Priyank Stevens
--- NOTE | 2017-10-19 13:42 | PCM.PYCHPN ---
Psychiatric Progress Note - Psychiatric Progress Note Patient seen today, length of contact: 15 min Patient Chief Complaint: I m feeling depressed.' Problems Identified/Issues Discussed: Patient seen and evaluated, chart reviewed and discussed with the nurse. Pt remained isolative, depressed and withdrawn. Patient reports depressed mood, and feelings of helplessness. He denies any withdrawal symptoms. He denies any auditory or visual hallucinations. He is taking medications and denies any side effects. Supportive therapy and psychoeducation were given. Medication Change: Yes Medical Record Reviewed: Yes Mental Status Examination - Cognitive Function Orientation: Person, Place, Situation, Time Memory: Intact Attention: WNL Concentration: Poor Association: WNL Fund of Knowledge: Poor - Mood Mood: Depressed, Anxious - Affect Affect: Constricted, Depressed - Formal Thought Process Formal Thought Process: No Impairment - Suicidal Ideation Suicidal Ideation: No - Homicidal Ideation Homicidal Ideation: No Goal/Treatment Plan - Goal/Treatment Plan Need for Continued Stay: Severe depression anxiety, Severe functional impairment Progress Toward Problem(s) and Goals/Treatment Plan: Bipolar disorder depressed severe without psychotic features CBT Psychoeducation Supportive therapy, group therapy, individual therapy Remeron 30 mg PO QHS Neurontin 100 mg by mouth 3 times a day Trazodone 100 mg by mouth daily at bedtime Sedative/hypnotic use disorder moderate Monitor signs and symptoms Use MS for abstinence Ativan 1 mg by mouth every 6 hours when necessary HTN, S/P CVA Continue prescribed medications Metoprolol, clonidine, HCTZ IM on board
[2017-10-19 14:22] LABS: BASO # 0.1 K/uL (0.0-0.2); BASO % 0.6 % (0.0-2.0); EOS # 0.1 K/uL (0.0-0.7); EOS % 1.2 % (0.0-4.0); HEMOGLOBIN 14.1 g/dL (12.0-18.0); LYMPH # 1.7 K/uL (1.0-4.3); LYMPH % 15.3 % (20.0-40.0); MEAN CELL VOLUME 96.3 fL (80.0-94.0); MEAN CORPUSCULAR HEMOGLOBIN 32.3 pg (27.0-31.0); MEAN CORPUSCULAR HGB CONC 33.6 g/dL (33.0-37.0); MEAN PLATELET VOLUME 10.1 fL (7.2-11.7); MONO # 1.3 K/uL (0.0-0.8); MONO % 12.2 % (0.0-10.0); NEUT # 7.6 K/uL (1.8-7.0); NEUT % 70.7 % (50.0-75.0); NRBC % 0.1 % (0.0-2.0); RBC 4.35 Mil/uL (4.40-5.90); WHITE BLOOD COUNT 10.8 K/uL (4.8-10.8)
[2017-10-19 14:31] LABS: ALB/GLOB RATIO 1.3 (1.0-2.1); ALBUMIN 3.7 g/dL (3.5-5.0); ALT/SGPT 17 U/L (21-72); AST/SGOT 22 U/L (17-59); BLOOD UREA NITROGEN 25 mg/dL (9-20); CALCIUM 8.9 mg/dl (8.6-10.4); GFR NON-AFRICAN AMERICAN > 60
--- NOTE | 2017-10-20 07:25 | CP.PCM.PN ---
<Jennifer Marrero - Last Filed: 10/20/17 10:58> Subjective - Date & Time of Evaluation Date of Evaluation: 10/20/17 Time of Evaluation: 09:30 - Subjective Subjective: Patient examined at bedside. No acute events overnight. call center recruiter resident paged regarding high BP reading. Patient complains of gas pain. Patient denies headache, dizziness, chest pain, SOB, nausea, diarrhea. Objective - Vital Signs/Intake and Output Vital Signs (last 24 hours): Temp Pulse Resp BP Pulse Ox 97.6 F 79 18 151/87 H 99 10/20/17 06:48 10/20/17 06:48 10/20/17 06:48 10/20/17 06:48 10/18/17 16:42 - Medications Medications: Current Medications Gabapentin (Neurontin) 100 mg PO TID [facility] Last Admin: 10/19/17 17:38 Dose: 100 mg Hydralazine HCl (Apresoline) 50 mg PO TID [facility] Last Admin: 10/19/17 17:38 Dose: 50 mg Hydrochlorothiazide (Microzide) 100 mg PO DAILY [facility] Last Admin: 10/19/17 10:40 Dose: 100 mg Hydroxyzine HCl (Atarax) 25 mg PO Q8H PRN PRN Reason: Anxiety Last Admin: 10/18/17 13:13 Dose: 25 mg Lorazepam (Ativan) 1 mg PO Q6 PRN PRN Reason: Anxiety Last Admin: 10/18/17 08:03 Dose: 1 mg Losartan Potassium (Cozaar) 25 mg PO DAILY [facility] Last Admin: 10/19/17 10:39 Dose: 25 mg Metoprolol Tartrate (Lopressor) 50 mg PO BID [facility] Last Admin: 10/19/17 17:38 Dose: 50 mg Mirtazapine (Remeron) 30 mg PO HS [facility] Last Admin: 10/19/17 21:31 Dose: 30 mg Nicotine (Nicoderm Cq) 1 patch TD DAILY [facility] Last Admin: 10/19/17 10:40 Dose: 1 patch Rosuvastatin Calcium (Crestor) 5 mg PO HS [facility] Last Admin: 10/19/17 21:31 Dose: 5 mg Trazodone HCl (Desyrel) 100 mg PO HS [facility] Last Admin: 10/19/17 21:31 Dose: 100 mg - Labs Labs: 10/19/17 14:07 10/19/17 14:07 - Constitutional Appears: Non-toxic, No Acute Distress - Head Exam Head Exam: ATRAUMATIC, NORMAL INSPECTION, NORMOCEPHALIC - Eye Exam Eye Exam: EOMI, Normal appearance - ENT Exam ENT Exam: Mucous Membranes Moist, Normal Exam - Neck Exam Neck Exam: Normal Inspection. absent: Lymphadenopathy - Respiratory Exam Respiratory Exam: Clear to Ausculation Bilateral, NORMAL BREATHING PATTERN. absent: Wheezes, Stridor - Cardiovascular Exam Cardiovascular Exam: REGULAR RHYTHM, +S1, +S2. absent: Tachycardia, Murmur - GI/Abdominal Exam GI & Abdominal Exam: Soft, Normal Bowel Sounds. absent: Distended, Tenderness - Extremities Exam Extremities Exam: Normal Capillary Refill, Normal Inspection. absent: Calf Tenderness, Pedal Edema - Neurological Exam Neurological Exam: Alert, Awake, Oriented x3 - Psychiatric Exam Psychiatric exam: Normal Affect, Normal Mood - Skin Skin Exam: Dry, Intact, Normal Color, Warm Assessment and Plan - Assessment and Plan (Free Text) Assessment: 56 year old male CVAs, HTN, HLD, IGT, bipolar disorder, and depression admitted s/p pill suicide attempts via pill ingestion. Medicine consulted to manage HTN HTN BP still elevated (169-157)/(80-95), although asymptomatic -cozaar 25mg PO qd -lopressor 50mg PO BID -HCTZ 25mg q8 PRN -hydralazine 50mg PO TID -vitals q8 -consider increasing cozaar to 50mg if BP still elevated CAD -crestor 5mg hs -ASA 81mg held Psych -meds handled by psych Gas -simethicone 80mg x1 <Priyank Stevens H - Last Filed: 10/20/17 13:26> Objective - Vital Signs/Intake and Output Vital Signs (last 24 hours): Temp Pulse Resp BP Pulse Ox 97.6 F 75 18 133/73 99 10/20/17 06:48 10/20/17 10:31 10/20/17 06:48 10/20/17 10:31 10/18/17 16:42 - Medications Medications: Current Medications Gabapentin (Neurontin) 300 mg PO BID [facility] Hydralazine HCl (Apresoline) 50 mg PO TID [facility] Last Admin: 10/20/17 13:02 Dose: 50 mg Hydrochlorothiazide (Microzide) 100 mg PO DAILY [facility] Last Admin: 10/20/17 09:29 Dose: 100 mg Hydroxyzine HCl (Atarax) 25 mg PO Q8H PRN PRN Reason: Anxiety Last Admin: 10/18/17 13:13 Dose: 25 mg Lorazepam (Ativan) 1 mg PO Q6 PRN PRN Reason: Anxiety Last Admin: 10/18/17 08:03 Dose: 1 mg Losartan Potassium (Cozaar) 25 mg PO DAILY [facility] Last Admin: 10/20/17 09:28 Dose: 25 mg Metoprolol Tartrate (Lopressor) 50 mg PO BID [facility] Last Admin: 10/20/17 09:28 Dose: 50 mg Mirtazapine (Remeron) 45 mg PO HS [facility] Nicotine (Nicoderm Cq) 1 patch TD DAILY [facility] Last Admin: 10/20/17 09:28 Dose: 1 patch Rosuvastatin Calcium (Crestor) 5 mg PO HS [facility] Last Admin: 10/19/17 21:31 Dose: 5 mg Trazodone HCl (Desyrel) 100 mg PO HS [facility] Last Admin: 10/19/17 21:31 Dose: 100 mg - Labs Labs: 10/19/17 14:07 10/19/17 14:07 Attending/Attestation - Attestation I have personally seen and examined this patient.: Yes I have fully participated in the care of the patient.: Yes I have reviewed all pertinent clinical information, including history, physical exam and plan: Yes Notes (Text): 10/20/17 13:22 Medical attending: Patient was seen and examined by me. Agree with the above note by the resident The patient was not in any acute distress when I came and saw him. The patient' s systolic BP is elevated in the 150s today. Yesterday it was high as 170 systolic. Will continue with the current regimen however we did increase the cozzar to 50 mg PO QD thank you Priyank Stveens
[2017-10-20] MEDS ORDERED: Simethicone 80 mg Chewtab PO ONE (10:05)
--- NOTE | 2017-10-20 11:06 | PCM.PYCHPN ---
Psychiatric Progress Note - Psychiatric Progress Note Patient seen today, length of contact: 15 min Patient Chief Complaint: I m feeling little better.' Problems Identified/Issues Discussed: Patient seen and evaluated, chart reviewed and discussed with the nurse. As per staff patient is improving. Patient reports some improvement in his depressed mood, and feelings of hopelessness and helplessness. However he still remains isolative, and withdrawn. He denies any auditory or visual hallucinations. He is taking medications and denies any side effects. Supportive therapy and psychoeducation were given. Medication Change: Yes Medical Record Reviewed: Yes Mental Status Examination - Cognitive Function Orientation: Person, Place, Situation, Time Memory: Intact Attention: WNL Concentration: Poor Association: WNL Fund of Knowledge: Poor - Mood Mood: Depressed, Anxious - Affect Affect: Constricted, Depressed - Formal Thought Process Formal Thought Process: No Impairment - Suicidal Ideation Suicidal Ideation: No - Homicidal Ideation Homicidal Ideation: No Goal/Treatment Plan - Goal/Treatment Plan Need for Continued Stay: Severe depression anxiety, Severe functional impairment Progress Toward Problem(s) and Goals/Treatment Plan: Bipolar disorder depressed severe without psychotic features CBT Psychoeducation Supportive therapy, group therapy, individual therapy Remeron 45 mg PO QHS Neurontin 300 mg by mouth 2 times a day Trazodone 100 mg by mouth daily at bedtime Sedative/hypnotic use disorder moderate Monitor signs and symptoms Use [place] for abstinence Ativan 1 mg by mouth every 6 hours when necessary HTN, S/P CVA Continue prescribed medications Metoprolol, clonidine, HCTZ IM on board
--- NOTE | 2017-10-21 11:22 | CP.PCM.CON ---
Past Patient History - Infectious Disease Hx of Infectious Diseases: None - Tetanus Immunizations Tetanus Immunization: Unknown - Past Medical History & Family History Past Medical History?: Yes - Past Social History Smoking Status: Former Smoker - CARDIAC Hx Hypertension: Yes - PULMONARY Hx Respiratory Disorders: Yes (Patient reported shortness of breath on exertion) - NEUROLOGICAL Hx Transient Ischemic Attacks (TIA): Yes (CVA) - HEENT Hx HEENT Problems: No - RENAL Hx Chronic Kidney Disease: Yes - ENDOCRINE/METABOLIC Hx Endocrine Disorders: No - HEMATOLOGICAL/ONCOLOGICAL Hx Human Immunodeficiency Virus (HIV): No - INTEGUMENTARY Hx Dermatological Problems: No - MUSCULOSKELETAL/RHEUMATOLOGICAL Hx Falls: Yes (Reported history of fall from the first stroke) - GASTROINTESTINAL Hx Gastrointestinal Disorders: No - GENITOURINARY/GYNECOLOGICAL Hx Genitourinary Disorders: No - PSYCHIATRIC Hx Substance Use: Yes - SURGICAL HISTORY Hx Surgeries: Yes Hx Orthopedic Surgery: Yes (Right shoulder surgery 2x) - ANESTHESIA Hx Anesthesia: Yes Hx Anesthesia Reactions: No Hx Malignant Hyperthermia: No Meds Home Medications: Home Medication List Medication Instructions Recorded Confirmed Type Losartan [Cozaar] 50 mg PO DAILY #30 tab 10/21/17 Rx Metoprolol Tartrate 50 mg PO BID #30 tablet 10/21/17 Rx amLODIPine [Norvasc] 5 mg PO DAILY #30 tab 10/21/17 Rx hydroCHLOROthiazide [Microzide] 100 mg PO DAILY #30 tab 10/21/17 Rx Allergies/Adverse Reactions: Allergies Allergy/AdvReac Type Severity Reaction Status Date / Time chlorpromazine HCl Allergy Severe RASH Verified 08/14/15 20:02 [From Thorazine] - Medications Medications: Current Medications Amlodipine Besylate (Norvasc) 5 mg PO DAILY [facility] Last Admin: 10/21/17 10:25 Dose: 5 mg Gabapentin (Neurontin) 300 mg PO BID [facility] Last Admin: 10/21/17 09:14 Dose: 300 mg Hydralazine HCl (Apresoline) 50 mg PO TID [facility] Last Admin: 10/21/17 09:14 Dose: 50 mg Hydrochlorothiazide (Microzide) 100 mg PO DAILY [facility] Last Admin: 10/21/17 09:15 Dose: 100 mg Hydroxyzine HCl (Atarax) 25 mg PO Q8H PRN PRN Reason: Anxiety Last Admin: 10/18/17 13:13 Dose: 25 mg Lorazepam (Ativan) 1 mg PO Q6 PRN PRN Reason: Anxiety Last Admin: 10/18/17 08:03 Dose: 1 mg Losartan Potassium (Cozaar) 50 mg PO DAILY [facility] Last Admin: 10/21/17 10:25 Dose: Not Given Metoprolol Tartrate (Lopressor) 50 mg PO BID [facility] Last Admin: 10/21/17 09:14 Dose: 50 mg Mirtazapine (Remeron) 45 mg PO HS [facility] Last Admin: 10/20/17 21:18 Dose: 45 mg Nicotine (Nicoderm Cq) 1 patch TD DAILY [facility] Last Admin: 10/21/17 09:14 Dose: 1 patch Rosuvastatin Calcium (Crestor) 5 mg PO [facility] Last Admin: 10/20/17 21:17 Dose: 5 mg Trazodone HCl (Desyrel) 100 mg PO [facility] Last Admin: 10/20/17 21:17 Dose: 100 mg Results - Vital Signs Recent Vital Signs: Last Vital Signs Temp 98 F 10/21/17 06:45 Pulse 72 10/21/17 10:06 Resp 18 10/21/17 06:45 BP 162/80 H 10/21/17 10:06 Pulse Ox 99 10/18/17 16:42 - Labs Result Diagrams: 10/19/17 14:07 10/19/17 14:07
--- NOTE | 2017-10-21 11:22 | CP.PCM.PN ---
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 pT DENIES CP, SOB, PITTS, F/C N/V OVERNIGHT. Objective - Vital Signs/Intake and Output Vital Signs (last 24 hours): Temp Pulse Resp BP Pulse Ox 98 F 72 18 162/80 H 99 10/21/17 06:45 10/21/17 10:06 10/21/17 06:45 10/21/17 10:06 10/18/17 16:42 - Medications Medications: Current Medications Amlodipine Besylate (Norvasc) 5 mg PO DAILY [facility] Last Admin: 10/21/17 10:25 Dose: 5 mg Gabapentin (Neurontin) 300 mg PO BID [facility] Last Admin: 10/21/17 09:14 Dose: 300 mg Hydralazine HCl (Apresoline) 50 mg PO TID [facility] Last Admin: 10/21/17 09:14 Dose: 50 mg Hydrochlorothiazide (Microzide) 100 mg PO DAILY [facility] Last Admin: 10/21/17 09:15 Dose: 100 mg Hydroxyzine HCl (Atarax) 25 mg PO Q8H PRN PRN Reason: Anxiety Last Admin: 10/18/17 13:13 Dose: 25 mg Lorazepam (Ativan) 1 mg PO Q6 PRN PRN Reason: Anxiety Last Admin: 10/18/17 08:03 Dose: 1 mg Losartan Potassium (Cozaar) 50 mg PO DAILY [facility] Last Admin: 10/21/17 10:25 Dose: Not Given Metoprolol Tartrate (Lopressor) 50 mg PO BID [facility] Last Admin: 10/21/17 09:14 Dose: 50 mg Mirtazapine (Remeron) 45 mg PO HS [facility] Last Admin: 10/20/17 21:18 Dose: 45 mg Nicotine (Nicoderm Cq) 1 patch TD DAILY [facility] Last Admin: 10/21/17 09:14 Dose: 1 patch Rosuvastatin Calcium (Crestor) 5 mg PO HS [facility] Last Admin: 10/20/17 21:17 Dose: 5 mg Trazodone HCl (Desyrel) 100 mg PO HS [facility] Last Admin: 10/20/17 21:17 Dose: 100 mg - Labs Labs: 10/19/17 14:07 10/19/17 14:07 - Additional Findings Additional findings: - Constitutional Appears: Non-toxic, No Acute Distress - Head Exam Head Exam: ATRAUMATIC, NORMAL INSPECTION, NORMOCEPHALIC - Eye Exam Eye Exam: EOMI, Normal appearance - ENT Exam ENT Exam: Mucous Membranes Moist, Normal Exam - Neck Exam Neck Exam: Normal Inspection. absent: Lymphadenopathy - Respiratory Exam Respiratory Exam: Clear to Ausculation Bilateral, NORMAL BREATHING PATTERN. absent: Wheezes, Stridor - Cardiovascular Exam Cardiovascular Exam: REGULAR RHYTHM, +S1, +S2. absent: Tachycardia, Murmur - GI/Abdominal Exam GI & Abdominal Exam: Soft, Normal Bowel Sounds. absent: Distended, Tenderness - Extremities Exam Extremities Exam: Normal Capillary Refill, Normal Inspection. absent: Calf Tenderness, Pedal Edema - Neurological Exam Neurological Exam: Alert, Awake, Oriented x3 - Psychiatric Exam Psychiatric exam: Normal Affect, Normal Mood - Skin Skin Exam: Dry, Intact, Normal Color, Warm Assessment and Plan - Assessment and Plan (Free Text) Plan: Assessment: 56 year old male CVAs, HTN, HLD, IGT, bipolar disorder, and depression admitted s/p pill suicide attempts via pill ingestion. Medicine consulted to manage HTN PLAN HTN BP still elevated (169-157)/(80-95), although asymptomatic -cozaar 50mg PO qd -lopressor 50mg PO BID -HCTZ 25mg q8 PRN -NORVASC 5MG PO DAILY -vitals q8 -consider increasing cozaar to 50mg if BP still elevated CAD -crestor 5mg hs -ASA 81mg held Psych -meds handled by psych Gas -simethicone 80mg x1 [employer]ING [employer]ICE
--- NOTE | 2017-10-21 11:25 | PCM.PYCHPN ---
Psychiatric Progress Note - Psychiatric Progress Note Patient seen today, length of contact: 15 min Patient Chief Complaint: "So so" Problems Identified/Issues Discussed: The pt is seen, chart reviewed, case discussed with staff. Support and psychoeducation given No new symptoms reported, improving slowly and needs more time c/o more anxiety, GI problems No SEs from medications, risks discussed. After care discussed Medication Change: Yes Medical Record Reviewed: Yes Mental Status Examination - Cognitive Function Orientation: Person, Place, Situation, Time Memory: Intact Attention: WNL Concentration: Poor Association: WNL Fund of Knowledge: Poor - Mood Mood: Depressed, Anxious - Affect Affect: Constricted, Depressed - Formal Thought Process Formal Thought Process: No Impairment - Suicidal Ideation Suicidal Ideation: No - Homicidal Ideation Homicidal Ideation: No Goal/Treatment Plan - Goal/Treatment Plan Need for Continued Stay: Severe depression anxiety, Severe functional impairment Progress Toward Problem(s) and Goals/Treatment Plan: Continue medications Support and psychoeducation daily Attend groups and activities daily After care planning by RONAN
[2017-10-21] MEDS: Simethicone 80 mg Chewtab PO PRN (13:10)
[2017-10-22] MEDS: Simethicone 80 mg Chewtab PO PRN ×2 (09:41→17:42)
--- NOTE | 2017-10-22 12:14 | PCM.PYCHPN ---
Psychiatric Progress Note - Psychiatric Progress Note Patient seen today, length of contact: 15 min Patient Chief Complaint: "Not well" Problems Identified/Issues Discussed: The pt is seen, chart reviewed, case discussed with staff. Support and psychoeducation given No new symptoms reported, improving slowly and needs more time No SEs from medications, risks discussed. After care discussed Medication Change: No Medical Record Reviewed: Yes Mental Status Examination - Cognitive Function Orientation: Person, Place, Situation, Time Memory: Intact Attention: WNL Concentration: Poor Association: WNL Fund of Knowledge: Poor - Mood Mood: Depressed, Anxious - Affect Affect: Constricted, Depressed - Formal Thought Process Formal Thought Process: No Impairment - Suicidal Ideation Suicidal Ideation: No - Homicidal Ideation Homicidal Ideation: No Goal/Treatment Plan - Goal/Treatment Plan Need for Continued Stay: Severe depression anxiety, Severe functional impairment Progress Toward Problem(s) and Goals/Treatment Plan: Continue medications Support and psychoeducation daily Attend groups and activities daily After care planning by RONAN
[2017-10-23 06:48] VITALS: RESP 20
[2017-10-23] MEDS: Simethicone 80 mg Chewtab PO PRN ×3 (09:44→22:34)
--- NOTE | 2017-10-23 10:11 | PCM.PYCHPN ---
Psychiatric Progress Note - Psychiatric Progress Note Patient seen today, length of contact: 15 min Patient Chief Complaint: I m feeling better.' Problems Identified/Issues Discussed: Patient seen and evaluated, chart reviewed and discussed with the nurse. Patient reports improvement in his depressed mood, and reports improvement in the feelings of helplessness. However, he remained isolative, and withdrawn. He denies any withdrawal symptoms. He denies any auditory or visual hallucinations. He is taking medications and denies any side effects. Supportive therapy and psychoeducation were given. Medication Change: Yes Medical Record Reviewed: Yes Mental Status Examination - Cognitive Function Orientation: Person, Place, Situation, Time Memory: Intact Attention: WNL Concentration: WNL Association: WNL Fund of Knowledge: Poor - Mood Mood: Depressed, Anxious - Affect Affect: Constricted, Depressed - Formal Thought Process Formal Thought Process: No Impairment - Suicidal Ideation Suicidal Ideation: No - Homicidal Ideation Homicidal Ideation: No Goal/Treatment Plan - Goal/Treatment Plan Need for Continued Stay: Severe depression anxiety, Severe functional impairment Progress Toward Problem(s) and Goals/Treatment Plan: Bipolar disorder depressed severe without psychotic features CBT Psychoeducation Supportive therapy, group therapy, individual therapy Remeron 45 mg PO QHS Neurontin 300 mg by mouth 2 times a day Trazodone 100 mg by mouth daily at bedtime Sedative/hypnotic use disorder moderate Monitor signs and symptoms Use [place] for abstinence Ativan 1 mg by mouth every 6 hours when necessary HTN, S/P CVA Continue prescribed medications Metoprolol, clonidine, HCTZ IM on board - Smoking Cessation Smoking Cessation Initiated: No
[2017-10-24 06:24] VITALS: BP 122/61; PULSE 84; TEMP 98.4
--- NOTE | 2017-10-24 09:20 | PCM.PYCHDC ---
Mental Status Examination - Mental Status Examination Orientation: Person, Place, Situation, Time Memory: Intact Mood: Neutral Affect: Constricted Speech: Soft Attention: WNL Concentration: WNL Association: WNL Fund of Knowledge: WNL Formal Thought Process: No Impairment Description of patient's judgement and insight: good, fair Psychotic Thoughts and Behaviors: denies any AVH Suicidal Ideation: No Current Homicidal Ideation?: No Discharge Summary - Discharge Note Reason for Hospitalization: Pt is a 56 year old single male referred by EMS after intentional overdose on 6 ambien pills 10 mg and 1 percocet pill 325mg/10mg. Pt reports history of being diagnosed with bipolar disorder and ADHD, when he was a child. He also reports history of few inpatient psychiatric hospitalizations in [place]. Pt reports he had seen a therapist years ago and would like to be linked with one near his home. Pt reports his brother lives in the home with him and was the one who called 911. Pt reports he was watching a show where it described a person who killed himself after taking 10 pills of ambien and 1 pill of percocet. Pt states he was stressed, anxiety and tired. Patient reports depressed mood, at times feelings of hopelessness and helplessness, poor sleep and poor appetite. Pt states he had not been sleeping for 4 days. As per the collateral, his son reported that the trigger for the suicide attempt was his weakness to his right side (arm and leg) and a recent break up with his girlfriend. Pt's son reports pt was able to "build a home" but now with the weakness to right side pt is not able to do all the things he use to. Son reports the pt's girlfriend had a lot of problems which included cancer but that pt would burden himself with other's problems. He reports at times irritability, and agitation. Patient currently denies any auditory/visual hallucinations and any paranoia. He denies any homicidal ideation. He reports drinking few beers over the weekend but denies any other substance abuse. Consultations:: List each consultation separately and include: 1. Reason for request. 2. Findings. 3. Follow-up Summary of Hospital Course include:: 1. Description of specific treatment plan utilized for patients during their course of treatmen. 2. Summarize the time- course for resolution of acute symptoms and/or regressed behaviors. 3. Describe issues identified and worked on during hospitalization. 4. Describe medication utilized. 5. Describe medical problems identified and treated. 6. Reassessment of suicide risk Summary of Hospital Course: Pt is a 56 year old single male referred by EMS after intentional overdose on 6 ambien pills 10 mg and 1 percocet pill 325mg/10mg. Pt reports history of being diagnosed with bipolar disorder and ADHD, when he was a child. He also reports history of few inpatient psychiatric hospitalizations in [place]. Pt reports he had seen a therapist years ago and would like to be linked with one near his home. Pt reports his brother lives in the home with him and was the one who called 911. Pt reports he was watching a show where it described a person who killed himself after taking 10 pills of ambien and 1 pill of percocet. Pt states he was stressed, anxiety and tired. Patient reports depressed mood, at times feelings of hopelessness and helplessness, poor sleep and poor appetite. Pt states he had not been sleeping for 4 days. As per the collateral, his son reported that the trigger for the suicide attempt was his weakness to his right side (arm and leg) and a recent break up with his girlfriend. Pt's son reports pt was able to "build a home" but now with the weakness to right side pt is not able to do all the things he use to. Son reports the pt's girlfriend had a lot of problems which included cancer but that pt would burden himself with other's problems. He reports at times irritability, and agitation. Patient currently denies any auditory/visual hallucinations and any paranoia. He denies any homicidal ideation. He reports drinking few beers over the weekend but denies any other substance abuse. PMH: CVA R side, HTN - Diagnosis (1) Bipolar 1 disorder Current Visit: No Status: Chronic - Final Diagnosis (DSM 5) Condition upon Discharge: STABLE DSM 5: Bipolar disorder depressed severe without psychotic features Sedative/hypnotic use disorder moderate Disposition: HOME/ ROUTINE Follow-up Treatment Plan: Bipolar disorder depressed severe without psychotic features CBT Psychoeducation Supportive therapy, group therapy, individual therapy Remeron 45 mg PO QHS Neurontin 300 mg by mouth 2 times a day Trazodone 100 mg by mouth daily at bedtime Sedative/hypnotic use disorder moderate Monitor signs and symptoms Use [place] for abstinence Ativan 1 mg by mouth every 6 hours when necessary HTN, S/P CVA Continue prescribed medications Metoprolol, clonidine, HCTZ IM on board Prescriptions/Medication Reconciliation: amLODIPine [Norvasc] 5 mg PO DAILY #30 tab Gabapentin [Neurontin] 300 mg PO BID #60 cap hydroCHLOROthiazide [Microzide] 100 mg PO DAILY #30 tab Losartan [Cozaar] 50 mg PO DAILY #30 tab Metoprolol Tartrate 50 mg PO BID #30 tablet Mirtazapine [Remeron] 45 mg PO HS #30 tab traZODone [Desyrel] 100 mg PO HS #30 tab
== END 2017-10-24 14:01 | disposition home or self-care (01) | DRG 885 ==
LOC: C.ER 07:45 → C.5E 19:57
PROVIDERS: ADMIT Psychiatry & Neurology Psychiatry; ATTEND Psychiatry & Neurology Psychiatry
PROC: GZ3ZZZZ Medication Management (ICD-10-PCS; principal; 2017-10-15)
PROC: HZ89ZZZ Medication Management for Substance Abuse Treatment, Other Replacement Medication (ICD-10-PCS; 2017-10-15)
PROC: GZHZZZZ Group Psychotherapy (ICD-10-PCS; 2017-10-15)
PROC: GZ56ZZZ Individual Psychotherapy, Supportive (ICD-10-PCS; 2017-10-15)
DX: F31.4 Bipolar disorder, current episode depressed, severe, without psychotic features (principal); F13.20 Sedative, hypnotic or anxiolytic dependence, uncomplicated; F90.9 Attention-deficit hyperactivity disorder, unspecified type; T42.6X2A Poisoning by other antiepileptic and sedative-hypnotic drugs, intentional self-harm, initial encounter; F17.210 Nicotine dependence, cigarettes, uncomplicated; E11.22 Type 2 diabetes mellitus with diabetic chronic kidney disease; I25.10 Atherosclerotic heart disease of native coronary artery without angina pectoris; N18.9 Chronic kidney disease, unspecified; I12.9 Hypertensive chronic kidney disease with stage 1 through stage 4 chronic kidney disease, or unspecified chronic kidney disease; E78.5 Hyperlipidemia, unspecified; Z86.73 Personal history of transient ischemic attack (TIA), and cerebral infarction without residual deficits; Z79.82 Long term (current) use of aspirin; Z79.899 Other long term (current) drug therapy